=== PATIENT | female | born 1950 | race Caucasian/White ===

== ENCOUNTER 2016-10-13 10:15 | Day surgery (SDC) | payer MEDICARE ==
[~2016-10-13 10:15] MED LIST: IV START KIT ONE; LACTATED RINGERS 1,000 ML IV SCH; LACTATED RINGERS 1,000 ML ONE
[2016-10-13] MEDS ORDERED: LIDOCAINE 1% (PRES FREE) 30 ML VIAL ONE (11:25)
[2016-10-13] MEDS ORDERED: PROPOFOL 20 ML IV ONE (11:25)
[2016-10-13 17:59] LABS: HELICOBACTER PYLORII DETECTION NEGATIVE (NEGATIVE)
--- NOTE | 2016-10-17 13:15 | SURGPATH ---
[facility] [address] [place] [id number] Patient Name: KATIE PACHECO MR#: [id number] : 1950 Gender: F Specimen #: [id number] Collected: 10/13/2016 Received: 10/14/2016 Reported: 10/17/2016 Submitting Phys: SOHA DUBOSE Copy To Phys: [facility] Clinical History / Pre-Operative Diagnosis: Dysphagia; rule out gastritis Specimen Source / Surgical Procedure Performed: Antral biopsy Interpretation: ANTRUM, BIOPSY: - REACTIVE GASTROPATHY Electronically Signed Out Raul Le M.D. Gross Description: The specimen is received in a formalin filled container labeled with the patient's name and "antral biopsy". Two hwang biopsies are 0.3 and 0.6 cm. Totally embedded in one cassette. Timbo Andujar, PSrinivasaASrinivasa Microscopic Description: Sections show reactive changes with scant inflammatory cells. This is consistent with reactive gastropathy. 1: [id number] K29.50
== END 2016-10-13 12:15 | disposition home or self-care (01) ==
LOC: SDC 10:15
PROVIDERS: ATTEND Internal Medicine Gastroenterology
PROC: 0DB78ZX Excision of Stomach, Pylorus, Via Natural or Artificial Opening Endoscopic, Diagnostic (ICD-10-PCS; principal; 2016-10-13)
DX: R13.10 Dysphagia, unspecified (principal); K29.70 Gastritis, unspecified, without bleeding; K29.80 Duodenitis without bleeding; K21.9 Gastro-esophageal reflux disease without esophagitis; I10 Essential (primary) hypertension; Z88.0 Allergy status to penicillin; Z87.891 Personal history of nicotine dependence